=== PATIENT | male | born 1995 | race Caucasian/White ===

== ENCOUNTER 2020-03-24 06:53 | Emergency (ER) | payer MEDICAID ==
[~2020-03-24] VITALS: Ht 190.5 cm; Wt 94.1 kg
[2020-03-24 06:55] VITALS: BP 131/77
--- NOTE | 2020-03-24 07:01 | NUR ---
ACUTE DIALYSIS REGISTERED NURSE: PATIENT DELCINED WHEEL CHAIR FROM TRIAGE. AMBULATED TO THE ROOM W/ A STEADY GAIT AND NOTEABLE LIMP.
[2020-03-24] MEDS ORDERED: KETOROLAC 30 MG/1 ML IM ONE (07:30)
[2020-03-24] MEDS ORDERED: KETOROLAC 30 MG/1 ML ONE (07:36)
--- NOTE | 2020-03-24 08:10 | NUR ---
Patient/Caregiver given discharge instructions and they have confirmed that they understand the instructions. Patient ambulatory with steady gait.
== END 2020-03-24 08:24 | disposition home or self-care (01) ==
LOC: ED 08:19
DX: M25.561 Pain in right knee (principal); X50.0XXA Overexertion from strenuous movement or load, initial encounter; Y93.79 Activity, other specified sports and athletics; Y92.328 Other athletic field as the place of occurrence of the external cause; Y99.8 Other external cause status
CPT/HCPCS: 29505; 73564; 96372; 99283; J1885

== ENCOUNTER 2020-10-18 15:41 | Emergency (ER) | payer MEDICAID ==
[~2020-10-18] VITALS: Ht 190.5 cm; Wt 109.6 kg
[2020-10-18 15:48] VITALS: BP 133/82
== END 2020-10-18 16:39 | disposition home or self-care (01) ==
LOC: ED 16:33
DX: K02.9 Dental caries, unspecified (principal); K08.89 Other specified disorders of teeth and supporting structures
CPT/HCPCS: 99283